=== PATIENT | male | born 1990 | race Caucasian/White ===

== ENCOUNTER 2024-04-05 11:47 | Inpatient (IN) | payer OTHER ==
[2024-04-05 12:34] VITALS: BMI 25.2
[2024-04-05] MEDS ORDERED: NALOXONE HCL 0.4 MG/ML VIAL IM PRN (14:25)
[2024-04-05] MEDS ORDERED: POLYETHYLENE GLYCOL (HEALTHYLAX) 3350 17 GM PACKET PO PRN (14:25)
[2024-04-05] MEDS ORDERED: MAGNESIUM HYDROX 2400MG/30ML ORAL SUSPENSION 30 ML CUP PO PRN (14:25)
[2024-04-05] MEDS ORDERED: ONDANSETRON *ODT* 4 MG TABLET SL PRN (14:25)
[2024-04-05] MEDS ORDERED: NALOXONE (NARCAN) HCL 4 MG/0.1 ML SPRAY NS PRN (14:25)
[2024-04-05] MEDS ORDERED: guaiFENesin 600 MG TABLET.ER (FP) PO PRN (14:25)
[2024-04-05] MEDS ORDERED: MAG HYDROX/AL HYDROX/SIMETH 30 ML UNIT-DOSE CUP PO PRN (14:25)
[2024-04-05] MEDS ORDERED: IBUPROFEN 400 MG TABLET (FP) PO PRN (14:25)
[2024-04-05] MEDS ORDERED: DICYCLOMINE HCL 10 MG CAPSULE PO PRN (14:25)
[2024-04-05] MEDS ORDERED: LOPERAMIDE HCL 2 MG CAPSULE PO PRN (14:25)
[2024-04-05] MEDS ORDERED: BENZONATATE 200 MG CAPSULE PO PRN (14:25)
[2024-04-05] MEDS ORDERED: BISMUTH SUBSALICYLATE 262 MG/15 ML BTL PO PRN (14:25)
[2024-04-05] MEDS ORDERED: BENZOCAINE/MENTHOL (CHLORASEPTIC ) LOZENGE MM PRN (14:25)
[2024-04-05] MEDS ORDERED: methaDONE HCL 10 MG TABLET (FOR DETOX USE ONLY) ONE (15:12)
[2024-04-05] MEDS ORDERED: PRENATAL VITAMINS W/ FOLIC ACID TABLET (FP) PO ONE (15:12)
[2024-04-05] MEDS: methaDONE HCL 10 MG TABLET PO ONE (15:20)
[2024-04-05] MEDS: PRENATAL VITAMINS W/ FOLIC ACID TABLET (FP) PO SCH (15:20)
[2024-04-05] MEDS ORDERED: LORazepam 2 MG TABLET ONE (16:20)
[2024-04-05] MEDS: LORazepam 2 MG TABLET PO ONE (16:24)
[2024-04-05] MEDS ORDERED: methaDONE HCL 10 MG TABLET PO PRN (16:25)
[2024-04-05] MEDS: cloNIDine HCL 0.1 MG TABLET PO SCH (17:13)
[2024-04-05] MEDS: SUVOREXANT 10 MG TABLET PO SCH (22:32)
[2024-04-05] MEDS: MELATONIN 5 MG TABLETS PO SCH (22:32)
[2024-04-05] MEDS: THIAMINE 100 MG TABLET PO SCH (22:32)
[2024-04-06] MEDS: METHOCARBAMOL 500 MG TABLET PO PRN (05:25)
[2024-04-06] MEDS: hydrOXYzine PAMOATE 25 MG CAPSULE (FP) PO PRN (05:25)
[2024-04-06] MEDS: methaDONE 40 MG, methaDONE 10 MG PO ONE (10:22)
[2024-04-06] MEDS: LORazepam 2 MG TABLET PO SCH (10:22)
[2024-04-06] MEDS: VENLAFAXINE HCL 150 MG E.R. CAPSULE PO SCH (10:25)
[2024-04-06] MEDS: NICOTINE 14 MG/24 HOURS TOPICAL PATCH TD SCH (10:26)
[2024-04-06] MEDS: IBUPROFEN 600 MG TABLET (FP) PO PRN (10:27)
[2024-04-06 12:44] LABS: HEMATOCRIT 40.5 % (35.4-49); HEMOGLOBIN 13.7 GM/dL (11.7-16.9); MCH 31.4 pg (25.7-33.7); MCHC 33.9 g/dl (32.0-35.9); MEAN CELL VOLUME 92.5 fl (80-96); PLATELET COUNT 205 10^3/uL (134-434); RBC 4.38 M/mm3 (4.00-5.60); WHITE BLOOD COUNT 4.4 K/mm3 (4.0-10.0)
[2024-04-06 12:53] LABS: POTASSIUM 4.3 mmol/L (3.5-5.1)
[2024-04-06 13:03] LABS: CALCIUM 9.4 mg/dL (8.5-10.1)
[2024-04-06 13:04] LABS: CREATININE 0.7 mg/dL (0.55-1.3)
[2024-04-06 13:06] LABS: BILIRUBIN,TOTAL 0.8 mg/dL (0.2-1); TOT PROT 7.1 g/dl (6.4-8.2)
[2024-04-06 13:09] LABS: BLOOD UREA NITROGEN 13.3 mg/dL (7-18)
[2024-04-06] MEDS: LORazepam 2 MG TABLET PO PRN (22:01)
[2024-04-07] MEDS ORDERED: cloNIDine HCL 0.1 MG TABLET PO PRN
[2024-04-07] MEDS: methaDONE 40 MG, methaDONE 20 MG PO ONE (10:11)
[2024-04-08] MEDS: methaDONE 40 MG, methaDONE 30 MG PO ONE (10:14)
[2024-04-09] MEDS: methaDONE HCL 40 MG DISPERSABLE TABLET PO ONE (09:13)
[2024-04-09] MEDS: clonazePAM 1 MG ODT TABLETS SL SCH (13:56)
[2024-04-10] MEDS: methaDONE 80 MG, methaDONE 10 MG PO ONE (09:43)
[2024-04-10] MEDS: ACETAMINOPHEN 325 MG TABLET (FP) PO PRN (11:37)
[2024-04-11 06:01] VITALS: RESP 16
[2024-04-11] MEDS ORDERED: methaDONE HCL 10 MG TABLET PO SCH (09:30)
[2024-04-11] MEDS: methaDONE 80 MG, methaDONE 10 MG PO SCH (09:58)
[2024-04-11 12:45] VITALS: BP 112/72; PULSE 61; TEMP 97.5
== END 2024-04-11 13:10 | disposition home or self-care (01) | DRG 773 ==
LOC: YASAS 11:47 → Y6N 15:29
PROVIDERS: ADMIT Allergy & Immunology; ATTEND Psychiatry & Neurology Pain Medicine
PROC: HZ2ZZZZ Detoxification Services for Substance Abuse Treatment (ICD-10-PCS; principal; 2024-04-05)
DX: F11.23 Opioid dependence with withdrawal (principal); F13.20 Sedative, hypnotic or anxiolytic dependence, uncomplicated; F14.20 Cocaine dependence, uncomplicated; F17.210 Nicotine dependence, cigarettes, uncomplicated; F19.282 Other psychoactive substance dependence with psychoactive substance-induced sleep disorder; F19.280 Other psychoactive substance dependence with psychoactive substance-induced anxiety disorder; F19.24 Other psychoactive substance dependence with psychoactive substance-induced mood disorder; F31.9 Bipolar disorder, unspecified; Z62.810 Personal history of physical and sexual abuse in childhood
CPT/HCPCS: 36415; 80053; 80305; 85027; 86780; 87811; 93005; 93010

== ENCOUNTER 2024-04-11 13:17 | Inpatient (IN) | payer OTHER ==
[2024-04-11] MEDS ORDERED: MAG HYDROX/AL HYDROX/SIMETH 30 ML UNIT-DOSE CUP PO PRN (15:02)
[2024-04-11] MEDS ORDERED: POLYETHYLENE GLYCOL (HEALTHYLAX) 3350 17 GM PACKET PO PRN (15:02)
[2024-04-11] MEDS ORDERED: NALOXONE HCL 0.4 MG/ML VIAL IVPUSH PRN (15:02)
[2024-04-11] MEDS ORDERED: ACETAMINOPHEN 325 MG TABLET (FP) PO PRN (15:02)
[2024-04-11] MEDS ORDERED: guaiFENesin 600 MG TABLET.ER (FP) PO PRN (15:02)
[2024-04-11] MEDS ORDERED: NALOXONE (NARCAN) HCL 4 MG/0.1 ML SPRAY NS PRN (15:02)
[2024-04-11] MEDS ORDERED: BENZONATATE 200 MG CAPSULE PO PRN (15:02)
[2024-04-11] MEDS ORDERED: LOPERAMIDE HCL 2 MG CAPSULE PO PRN (15:02)
[2024-04-11] MEDS: MELATONIN 5 MG TABLETS PO SCH (21:29)
[2024-04-11] MEDS: THIAMINE 100 MG TABLET PO SCH (21:29)
[2024-04-11] MEDS: METHOCARBAMOL 500 MG TABLET PO PRN (21:30)
[2024-04-11] MEDS: clonazePAM 1 MG ODT TABLETS SL SCH (21:30)
[2024-04-11] MEDS: hydrOXYzine PAMOATE 25 MG CAPSULE (FP) PO PRN (21:30)
[2024-04-11] MEDS: SUVOREXANT 10 MG TABLET PO ONE (21:55)
[2024-04-12] MEDS: methaDONE HCL 40 MG DISPERSABLE TABLET PO SCH (05:31)
[2024-04-12] MEDS ORDERED: methaDONE HCL 40 MG DISPERSABLE TABLET PO SCH (10:00)
[2024-04-12] MEDS: VENLAFAXINE HCL 150 MG E.R. CAPSULE PO SCH (10:28)
[2024-04-12] MEDS: PRENATAL VITAMINS W/ FOLIC ACID TABLET (FP) PO SCH (10:28)
[2024-04-12] MEDS: SUVOREXANT 15 MG TABLET PO SCH (21:08)
[2024-04-13] MEDS: NICOTINE POLACRILEX 4 MG LOZENGE BC PRN (17:37)
[2024-04-14] MEDS: DOCUSATE SODIUM 100 MG CAPSULE (FP) PO PRN (10:25)
[2024-04-16] MEDS: NICOTINE POLACRILEX 4 MG GUM BUC PRN (05:59)
[2024-04-16] MEDS: BISACODYL 5 MG TABLET.DR (FP) PO PRN (10:43)
[2024-04-17] MEDS: clonazePAM 1 MG ODT TABLETS SL SCH (13:43)
[2024-04-20] MEDS: BACLOFEN 10 MG TABLET (FP) PO SCH (09:57)
[2024-04-20] MEDS: KETOROLAC TROMETHAMINE 0.5% EYE DROP 1 DROP DROPS OS PRN (14:08)
[2024-04-20] MEDS: ARTIFICIAL TEARS OPHTHALMIC DROPS OU PRN (14:09)
[2024-04-22] MEDS: BENZOCAINE/MENTHOL (CHLORASEPTIC ) LOZENGE MM PRN (11:04)
[2024-04-22] MEDS: MAGNESIUM HYDROX 2400MG/30ML ORAL SUSPENSION 30 ML CUP PO PRN (11:07)
[2024-04-23] MEDS: methaDONE HCL 40 MG DISPERSABLE TABLET PO SCH (05:36)
[2024-04-24] MEDS ORDERED: LORATADINE 10 MG TABLET PO PRN (09:01)
[2024-04-24] MEDS: OXYMETAZOLINE 0.05% NASAL SOLUTION 15 ML BOTTLE NS PRN (12:01)
[2024-04-24] MEDS: guaiFENesin 600 MG TABLET.ER (FP) PO PRN (12:01)
[2024-04-26] MEDS: clonazePAM 1 MG ODT TABLETS SL SCH (13:54)
[2024-04-26] MEDS: HEPATITIS A VIRUS VACCINE/PF 1440 UNIT/1 ML IM ONE (15:28)
[2024-04-29] MEDS: IBUPROFEN 600 MG TABLET (FP) PO PRN (12:14)
[2024-04-30] MEDS: methaDONE HCL 40 MG DISPERSABLE TABLET PO SCH (05:42)
[2024-04-30] MEDS: IBUPROFEN 400 MG TABLET (FP) PO PRN (10:25)
[2024-04-30] MEDS: clonazePAM 0.5 MG ODT TABLETS SL SCH (14:10)
[2024-05-04] MEDS: clonazePAM 0.5 MG ODT TABLETS SL SCH (11:04)
[2024-05-05] MEDS: clonazePAM 0.5 MG ODT TABLETS SL ONE (07:17)
[2024-05-05] MEDS: GABAPENTIN 100 MG CAPSULE PO SCH (10:29)
[2024-05-05] MEDS: hydrOXYzine PAMOATE 50 MG CAPSULE (FP) PO PRN (13:52)
[2024-05-05] MEDS: QUEtiapine FUMARATE 50 MG TABLET PO SCH (21:17)
[2024-05-05] MEDS ORDERED: QUEtiapine FUMARATE 50 MG TABLET PO PRN (22:00)
[2024-05-09 06:39] VITALS: RESP 18
[2024-05-10 06:42] VITALS: BP 134/79; PULSE 91; TEMP 97.7
== END 2024-05-10 09:48 | disposition home or self-care (01) | DRG 772 ==
LOC: YASAS 13:17 → Y3W 13:19
PROVIDERS: ADMIT Psychiatry & Neurology Pain Medicine; ATTEND Psychiatry & Neurology Pain Medicine
PROC: HZ42ZZZ Group Counseling for Substance Abuse Treatment, Cognitive-Behavioral (ICD-10-PCS; principal; 2024-04-11)
DX: F11.20 Opioid dependence, uncomplicated (principal); F14.20 Cocaine dependence, uncomplicated; F17.210 Nicotine dependence, cigarettes, uncomplicated; F19.280 Other psychoactive substance dependence with psychoactive substance-induced anxiety disorder; F19.282 Other psychoactive substance dependence with psychoactive substance-induced sleep disorder; F19.24 Other psychoactive substance dependence with psychoactive substance-induced mood disorder; F32.9 Major depressive disorder, single episode, unspecified; F41.9 Anxiety disorder, unspecified; J32.1 Chronic frontal sinusitis
CPT/HCPCS: 36415; 82140; 82962; 86803; 90632; J0475